=== PATIENT | male | born 1960 | race Two or more races ===

== ENCOUNTER → 2023-10-30 | Outpatient (CLI) | payer MEDICAID | END | disposition home or self-care (01) | LOC: Rad HDHVI 08:43 | PROVIDERS: ATTEND Internal Medicine Cardiovascular Disease | DX: R94.31 Abnormal electrocardiogram [ECG] [EKG] (principal); R07.89 Other chest pain | CPT/HCPCS: 93306 ==

== ENCOUNTER → 2023-11-01 | Outpatient (CLI) | payer MEDICAID ==
[~2023-11-01] VITALS: Ht 177.8 cm; Wt 93.0 kg
== END | disposition home or self-care (01) ==
LOC: Rad HDHVI 09:14
PROVIDERS: ATTEND Internal Medicine Cardiovascular Disease
DX: R07.89 Other chest pain (principal); E78.00 Pure hypercholesterolemia, unspecified; Z82.49 Family history of ischemic heart disease and other diseases of the circulatory system
CPT/HCPCS: 78452; 93017; 96374; A9500

== ENCOUNTER → 2023-12-09 | Outpatient (CLI) | payer MEDICAID ==
[~2023-12-09] MED LIST: ATOR10TA52 PO; ATOR20TA PO; IBUP200C3 PO; TAMS-35 PO
[2023-12-09 12:55] VITALS: BP 117/70; PULSE 68; RESP 18; O2SAT 93
[2023-12-09 13:14] VITALS: BP 118/66; PULSE 65; RESP 18; O2SAT 93
== END | disposition home or self-care (01) ==
LOC: Rad HDHVI 12:53
PROVIDERS: ATTEND Internal Medicine Cardiovascular Disease
DX: Z01.810 Encounter for preprocedural cardiovascular examination (principal); I50.23 Acute on chronic systolic (congestive) heart failure
CPT/HCPCS: 71046; 93005; G0463

== ENCOUNTER → 2023-12-09 | Outpatient (CLI) | payer MEDICAID ==
[2023-12-09 15:08] LABS: Basophils # (auto) 0.1 10 ^3/uL (0-0.2); Basophils % (auto) 0.9 % (0.0-2.0); Eosinophils # (auto) 0.2 10 ^3/uL (0-0.8); Eosinophils % (auto) 2.4 % (0.0-7.0); Hematocrit 43.2 % (41.0-53.0); Hemoglobin 15.3 g/dL (13.5-17.5); Lymphocytes # (auto) 2.4 10 ^3/uL (0.4-5.4); Lymphocytes % (auto) 30.8 % (10.0-50.0); Mean Corpuscular Hemoglobin 33.8 pg (28.0-32.0); Mean Corpuscular Hgb Conc. 35.4 g/dL (32.0-36.0); Mean Corpuscular Volume 95.5 fL (80.0-100.0); Monocytes # (auto) 0.6 10 ^3/uL (0-1.3); Monocytes % (auto) 7.1 % (0.0-12.0); Neutrophils # (auto) 4.7 10 ^3/uL (1.6-8.6); Neutrophils % (auto) 58.8 % (37.0-80.0); Nucleated Red Blood Cells % 0.1 %; Platelet Count (auto) 259 10^3/uL (140-450); Red Blood Cells 4.52 10^6/uL (4.5-5.90); Red Cell Distribution Width 13.2 % (11.8-14.3); White Blood Cell 7.9 10^3/uL (4.4-10.8)
[2023-12-09 15:28] LABS: INR 1.03 (0.9-1.15); Partial Thromboplastin Time 27.6 SEC (24.5-34.5); Prothrombin Time 10.9 sec (9.3-11.8)
[2023-12-09 15:43] LABS: Chloride 108 mmol/L (98-107); Sodium 138 mmol/L (136-145)
[2023-12-09 15:44] LABS: Anion Gap 6 (5-15); Carbon Dioxide 24 mmol/L (20-31)
[2023-12-09 15:49] LABS: BUN/Creatinine Ratio 17.8 (10.0-20.0); Blood Urea Nitrogen 16 mg/dL (9-23); Glucose 98 mg/dL (74-106)
== END | disposition home or self-care (01) ==
LOC: LAB 14:47
PROVIDERS: ATTEND Internal Medicine Cardiovascular Disease
DX: Z01.812 Encounter for preprocedural laboratory examination (principal); R79.1 Abnormal coagulation profile
CPT/HCPCS: 36415; 80048; 85025; 85610; 85730

== ENCOUNTER 2023-12-12 07:40 | Day surgery (SDC) | payer MEDICAID ==
[~2023-12-12] VITALS: Ht 177.8 cm; Wt 92.1 kg
[2023-12-12] VITALS (7 sets, daily range): BP systolic 112–118; BP diastolic 57–75; PULSE 48–53; RESP 12–18; O2SAT 93–97
[~2023-12-12 07:40] MED LIST changes: -ATOR20TA PO
[2023-12-12] MEDS ORDERED: NITROGLYCERIN 5MG/ML 10ML VIAL IV ONE (07:41)
[2023-12-12] MEDS ORDERED: IODIXANOL 320MG/ML 100ML BTL IV ONE (07:41)
[2023-12-12] MEDS ORDERED: MIDAZOLAM HCL 2MG/2ML 2ml VIAL (1mg/ml) ONE (10:20)
[2023-12-12] MEDS ORDERED: fentaNYL CITRATE 100 MCG/2 ML VL ONE (10:20)
[2023-12-12] MEDS ORDERED: ANGIOMAX 250 MG VIAL IV ONE (10:20)
[2023-12-12] MEDS ORDERED: VERAPAMIL 2.5MG/ML INJ 2ML VIAL IV ONE (10:20)
[2023-12-12] MEDS ORDERED: SODIUM CHL 0.9% 0 ML ONE (10:20)
[2023-12-12] MEDS ORDERED: LIDOCAINE 2%HCL (LOCAL ANESTH.) INJ 20ML MDV ONE (10:20)
== END 2023-12-12 13:07 | disposition home or self-care (01) ==
LOC: CATH 07:40
PROVIDERS: ATTEND Internal Medicine Cardiovascular Disease
DX: R94.39 Abnormal result of other cardiovascular function study (principal); I10 Essential (primary) hypertension; Z82.49 Family history of ischemic heart disease and other diseases of the circulatory system; Z87.891 Personal history of nicotine dependence; Z79.899 Other long term (current) drug therapy
CPT/HCPCS: 93458; C1887; C1894; J2250; J3010; J3490; Q9967; 99152